=== PATIENT | female | born 1960 | race Caucasian/White ===

== ENCOUNTER 2018-02-09 05:31 | Day surgery (SDC) | payer OTHER | END 2018-02-09 12:45 | disposition home or self-care (01) | LOC: AMB-ENDOS 05:31 | DX: K57.32 Diverticulitis of large intestine without perforation or abscess without bleeding (principal); K57.30 Diverticulosis of large intestine without perforation or abscess without bleeding; K64.1 Second degree hemorrhoids ==

== ENCOUNTER 2019-04-30 10:04 | Inpatient (IN) | payer OTHER ==
[~2019-04-30] VITALS: Ht 160 cm; Wt 127.0 kg
[2019-04-30] MEDS ORDERED: LOSARTAN POTASS50 MG (10:10)
[2019-04-30] MEDS ORDERED: TOPROL XL50 M1 (10:10)
[2019-04-30] MEDS ORDERED: SIMVASTATIN80 MG (10:11)
[2019-04-30] MEDS ORDERED: GLIMEPIRIDE4 MG (10:11)
[2019-04-30] MEDS ORDERED: GLUMETZA500 MG (10:11)
[2019-04-30] MEDS ORDERED: LEVOTHYROXINE25 MCG (10:12)
[2019-04-30] MEDS ORDERED: PROCAINAMIDE HCL (10:12)
== END 2019-05-03 14:49 | disposition home or self-care (01) | DRG 392 ==
LOC: ER 10:04 → SEC-K 15:50 → MEDJ 15:50
PROVIDERS: ADMIT Specialist
PROC: BW21ZZZ Computerized Tomography (CT Scan) of Abdomen and Pelvis (ICD-10-PCS; principal; 2019-04-30)
DX: K57.32 Diverticulitis of large intestine without perforation or abscess without bleeding (principal); R10.32 Left lower quadrant pain; I11.9 Hypertensive heart disease without heart failure; E03.8 Other specified hypothyroidism; E78.49 Other hyperlipidemia; K59.04 Chronic idiopathic constipation; E66.09 Other obesity due to excess calories; E11.9 Type 2 diabetes mellitus without complications; Z79.4 Long term (current) use of insulin